=== PATIENT | male | born 2005 | race Hispanic/Latino ===

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

== ENCOUNTER 2025-04-19 03:43 | Emergency (ER) | payer SELFPAY ==
[~2025-04-19] VITALS: Ht 182.9 cm; Wt 122.5 kg
[2025-04-19 03:57] VITALS: PULSE 119; RESP 20; TEMP 99.1
[2025-04-19] MEDS ORDERED: LIDOCAINE HCL 1% LOCAL INJ 20 ML VIAL INJ STA (04:12)
[2025-04-19] MEDS ORDERED: CEPHALEXIN500 MG PO (04:31)
[2025-04-19] MEDS: KETOROLAC TROMETHAMINE 60 MG/2 ML VIAL IM STA (04:41)
[2025-04-19 07:12] VITALS: BP 128/77; O2SAT 100
== END 2025-04-19 05:35 | disposition home or self-care (01) ==
LOC: ER 03:50
DX: S01.01XA Laceration without foreign body of scalp, initial encounter (principal); Y04.0XXA Assault by unarmed brawl or fight, initial encounter; Y92.89 Other specified places as the place of occurrence of the external cause
CPT/HCPCS: 12002; 70450; 70486; 99284; J1885

== ENCOUNTER 2025-04-27 16:46 | Emergency (ER) | payer OTHER ==
[~2025-04-27 16:46] MED LIST: CEPHALEXIN500 MG PO
== END 2025-04-27 19:17 | disposition left against medical advice (07) ==
LOC: ER 19:17
DX: Z48.02 Encounter for removal of sutures (principal)